=== PATIENT | female | born 1975 | race African-American/Black ===

== ENCOUNTER 2024-01-05 09:56 | Day surgery (SDC) | payer OTHER ==
[~2024-01-05] VITALS: Ht 160 cm; Wt 65.3 kg
[2024-01-05] MEDS ORDERED: MIDAZOLAM 2 MG/2 ML VIAL ONE (12:27)
[2024-01-05] MEDS ORDERED: fentaNYL citrate 0.05 MG/ML VIAL ONE (12:27)
[2024-01-05] MEDS: MIDAZOLAM 2 MG/2 ML VIAL IVP ONE (12:33)
[2024-01-05] MEDS: fentaNYL citrate 0.05 MG/ML VIAL IVP ONE (12:34)
[2024-01-05] MEDS: LIDOCAINE 2% 100 MG/5 ML UJET TP ONE (12:58)
[2024-01-05] MEDS: LABETALOL 20 MG/4 ML VIAL IVP SCH (13:00)
== END 2024-01-05 15:12 | disposition home or self-care (01) ==
LOC: MMU 09:56 → MOR 09:56
PROVIDERS: ATTEND Internal Medicine Gastroenterology
DX: Z12.11 Encounter for screening for malignant neoplasm of colon (principal); K22.70 Barrett's esophagus without dysplasia; K57.30 Diverticulosis of large intestine without perforation or abscess without bleeding; F41.9 Anxiety disorder, unspecified; F17.210 Nicotine dependence, cigarettes, uncomplicated; Z98.890 Other specified postprocedural states
CPT/HCPCS: 43235; 45378; J2250; J3010